=== PATIENT | male | born 2005 | race Caucasian/White ===

== ENCOUNTER 2023-07-15 09:48 | Emergency (ER) | payer OTHER, SELFPAY ==
--- NOTE | 2023-07-15 09:51 | ED.URI ---
HPI - URI/Sore Throat General Chief Complaint: Headache Stated Complaint: Hot flashes/bains Time Seen by Provider: 07/15/23 09:51 Source: patient and RN notes reviewed Mode of arrival: ambulatory Limitations: no limitations History of Present Illness HPI Narrative: Patient is a 17-year-old male who presents to the [facility] with complaints of headache since . He states that the headaches have been ongoing and have been affecting his sleep. He also reports sweats and feeling warm. However he denies known fevers. Denies chills. Denies cough, congestion, sore throat. Unsure of any known sick contacts. Patient is alert and oriented x4 with no obvious neurological deficits. He denies dizziness, numbness, weakness, difficulty walking, difficulty talking. Related Data Allergies Allergy/AdvReac Type Severity Reaction Status Date / Time latex Allergy Hives Verified 07/15/23 10:04 Review of Systems Review of Systems: CONSTITUTIONAL: Denies fever, chills, but reports sweats. EYES: Denies visual changes, redness, or discharge. ENT: Denies otalgia and sore throat CARDIOVASCULAR: Denies chest pain, palpitations, or edema. RESPIRATORY: Denies cough or dyspnea. GASTROINTESTINAL: Denies abdominal pain, nausea, vomiting, or diarrhea. GENITOURINARY: Denies dysuria or hematuria. SKIN: Denies rash or itching. MUSCULOSKELETAL: Denies back pain, joint pain, or myalgia. NEUROLOGIC: Reports headache, but denies numbness and weakness. Pertinent positives per HPI. PMFSH Comments At the time of my signature, I reviewed and agree with the nursing past medical, surgical, social, and family history. There is no relevant family history pertinent to the patient complaint. Exam Narrative: GENERAL: This is a well-nourished, well-developed patient, in no apparent distress. HEAD: normocephalic, atraumatic. EYES: Sclera clear/white. Vision is grossly intact. EARS: External ears normal. Hearing grossly intact. NOSE: External nose normal with no obvious nasal discharge, nares without redness, no rhinorrhea. THROAT: Mucous membranes moist, posterior pharynx clear. NECK: Neck supple, non-tender without lymphadenopathy, masses or thyromegaly. CARDIOVASCULAR: Regular rate and rhythm without murmurs, gallops, or rubs. RESPIRATORY: Clear to auscultation. Breath sounds equal bilaterally. No wheezes, rales, or rhonchi. GASTROINTESTINAL: Abdomen soft, non-tender, nondistended. Bowel sounds are active. No hepato-splenomegaly, or palpable masses. No guarding. SKIN: warm, intact with no suspicious lesions or rash, good texture and turgor. NEURO: awake, alert, and oriented to person, place and time. There were no obvious focal neurologic abnormalities. Course Course Level of Care: Express Care Visit Vital Signs Vital signs: Vital Signs Temperature 97.4 F L 07/15/23 10:00 Pulse Rate 102 H 07/15/23 10:00 Respiratory Rate 16 07/15/23 10:00 Blood Pressure 117/84 07/15/23 10:00 Pulse Oximetry 99 07/15/23 10:00 Temperature 97.4 F L 07/15/23 10:00 Pulse Rate 102 H 07/15/23 10:00 Respiratory Rate 16 07/15/23 10:00 Blood Pressure 117/84 07/15/23 10:00 Pulse Oximetry 99 07/15/23 10:00 Reviewed MDM - URI/Sore Throat MDM Narrative Medical decision making narrative: Take medication as directed. Follow-up with primary care physician. If he develops any dizziness, numbness, weakness, difficulty walking, difficulty talking, or change in mental status, please go to the ED immediately. Differential Diagnosis Differential diagnosis: Likely sinusitis, viral infection, influenza and other (covid, headache) Lab Data Attestation: I reviewed the patient's lab results. Labs: Influenza A Screen Negative Reference Range: Negative Influenza B Screen Negative Reference Range: Negative Critical Car
[2023-07-15 10:00] VITALS: BP 117/84; PULSE 102; RESP 16; TEMP 36.3; O2SAT 99
== END 2023-07-15 10:38 | disposition home or self-care (01) ==
PROVIDERS: Emergency Provider Nurse Practitioner
DX: R51.9 Headache, unspecified (principal); Z20.822 Contact with and (suspected) exposure to COVID-19
CPT/HCPCS: 87426; 87804; 99213; G0463

== ENCOUNTER 2023-07-15 11:17 | Emergency (ER) | payer OTHER, SELFPAY ==
--- NOTE | ~2023-07-15 | CT_ITS ---
Non-contrast Head CT History: Headache Technique: Axial non-contrast imaging of the brain was performed. Dose reduction technique was used on this scan by utilizing automated exposure control and iterative reconstruction technique. The dose -length product (DLP) was 681.00 mGy-cm. Findings: There is no evidence of intracranial hemorrhage, mass lesion, or acute infarct. Brain par enchyma appears normal. The ventricles and subarachnoid spaces are normal in size. The calvarium ap pears normal. The visualized paranasal sinuses and mastoid air cells are clear. Impression: No significant abnormality seen. Reviewed, dictated and finalized at location . Impression: No significant abnormality seen.
[2023-07-15 11:21] VITALS: BP 128/80; PULSE 94; RESP 18; TEMP 36.3; O2SAT 100
--- NOTE | 2023-07-15 11:26 | PC.NURSE ---
Addendum entered by Lara Weiss RN 07/15/23 11:34: Pt states they were up in [place] a few weeks ago before the headache started. he states that he got a bite of some sort and the bite bump is still present on his leg and he is unsure if it was a tick bite patient denies itching but states that it felt warm and throbbing. the patient denies headaches like this before the bite occured. the patient states that some days his headache is present everywhere, some days it's more of the forehead. and it moves throughout the head depending on the day. Patient reports that he goes to college in [facility] and lyme is prevelent in the area, he also lives in the dorms but states that he is up to date on his meningitis vaccinations. Original Note: Pt states they were up in [place] a few weeks ago before the headache started. he states that he got a bite of some sort and the bite bump is still present on his leg and he is unsure if it was a tick bite patient denies itching but states that it felt warm and throbbing. the patient denies headaches like this before the bite occured. the patient states that some days his headache is present everywhere, some days it's more of the forehead. and it moves throughout the head depending on the day.
--- NOTE | 2023-07-15 11:43 | ED.HA ---
HPI - Headache General Chief Complaint: Headache Stated Complaint: Headache, restless Time Seen by Provider: 07/15/23 11:21 History of Present Illness HPI Narrative: 17-year-old male no medical problems presents to the emergency room evaluation gradual onset the headache has been present for 6 days. Patient denies any photophobia. Denies nausea or vomiting. Denies changes in his vision or hearing. Patient states he has attempted Tylenol ibuprofen multiple occasions with no relief of symptoms. Denies injury or trauma. States since the onset of his headache he has had difficulty sleeping. Denies dizziness or lightheadedness. Denies history of similar symptoms. Denies any inciting event. Related Data Allergies Allergy/AdvReac Type Severity Reaction Status Date / Time latex Allergy Hives Verified 07/15/23 10:04 Review of Systems Review of Systems: ROS unremarkable except for stated in HPI Exam Narrative: GENERAL: Well-appearing, well-nourished, no physical limitations, and in no acute distress. HEAD: Normocephalic, atraumatic. EYES: Conjunctivae normal, PERRLA and EOMI. ENT: External nose normal, Nares clear, no rhinorrhea or epistaxis. Mucous membranes moist. External ears normal, bilateral TMs normal bilaterally NECK: Supple. No meningeal signs. CHEST: Clear to auscultation. No respiratory distress. No wheezes rales or rhonchi. HEART: Regular rate and rhythm. No murmur heard. Normal peripheral pulses. BACK:No cervical spine tenderness, FROM EXTREMITIES: Normal range of motion. No edema. No clubbing or cyanosis SKIN: Warm, dry, no rash. No noted wounds NEURO: No focal deficits. Alert and oriented x3. MAEW. CN's II-XI intact bilaterally, normal gait PSYCH: Cooperative. Normal mood and affect. Course Vital Signs Vital signs: Vital Signs Temperature 36.3 C L 07/15/23 11:21 Pulse Rate 94 07/15/23 11:21 Respiratory Rate 18 07/15/23 11:21 Blood Pressure 128/80 07/15/23 11:21 Pulse Oximetry 100 07/15/23 11:21 Oxygen Delivery Room Air 07/15/23 11:21 Temperature 36.3 C L 07/15/23 11:21 Pulse Rate 94 07/15/23 11:21 Respiratory Rate 18 07/15/23 11:21 Blood Pressure 128/80 07/15/23 11:21 Pulse Oximetry 100 07/15/23 11:21 Oxygen Delivery Room Air 07/15/23 11:21 MDM - Headache Lab Data 07/15/23 12:16 07/15/23 12:16 Labs: Lab Results 07/15/23 Range/Units 12:16 WBC 6.3 (4.5-10.0) K/mm3 RBC 5.97 (4.6-6.20) M/mm3 Hgb 16.3 (14.0-18.0) g/dL Hct 49.0 (42.0-52.0) % MCV 82.1 (80-100) fl MCH 27.3 (26-34) pg MCHC 33.3 (32-36) g/dl RDW 14.0 (11.5-14.5) % Plt Count 162 (150-375) k/mm3 MPV 10.4 (7.4-10.4) fl Immature Gran % (Auto) 0.2 (0-0.5) % Neut % (Auto) 39.7 L (45.5-73.1) % Lymph % (Auto) 47.3 H (18.3-44.2) % [place] % (Auto) 10.2 H (2.6-8.5) % Eos % (Auto) 1.8 (0-4.4) % Baso % (Auto) 0.8 (0.2-1.2) % Lymph # (Auto) 2.97 (0.9-3.2) K/mm3 [place] # (Auto) 0.6 (0.1-0.6) K/mm3 Eos # (Auto) 0.1 (0-0.3) K/mm3 Baso # (Auto) 0.1 (0.0-0.1) K/mm3 Abs Immat Gran (auto) 0.01 (0.00-0.031) K/mm3 Absolute Neuts (auto) 2.5 (1.3-6.7) K/mm3 Absolute Nucleated RBC 0.000 (0.0-0.012) K/mm3 Nucleated RBC % 0.0 (0.0-0.2) % Sodium 141 (134-143) mmol/L Potassium 4.4 (3.4-5.0) mmol/L Chloride 104 (98-107) mmol/L Carbon Dioxide 29 (22-30) mmol/L Anion Gap 8 (4-12) mmol/L BUN 15 (8-21) mg/dL Creatinine 0.90 (0.7-1.3) mg/dL Estim Creat Clear Calc 594 ml/min Estimated GFR > 60 (59 - ) Glucose 94 (65-110) mg/dL Calcium 9.3 (8.9-10.7) mg/dL Total Bilirubin 1.0 (0.2-1.3) mg/dL AST 34 (17-59) U/L ALT 40 (6-50) U/L Alkaline Phosphatase 50 L (58-237) U/L Total Protein 8.0 (6.3-8.6) g/dL Albumin 4.8 (3.7-5.6) g/dL Imaging Data Radiologist's impression: Impressions Head CT 07/15/23 11:59 Impression: No significant abnormality
[2023-07-15] MEDS: SODIUM CHLORIDE 0.9% IV 1,000 ML 999 ML IV CONT (12:11)
[2023-07-15] MEDS: METOCLOPRAMIDE HCL INJ 10 MG/2 ML VIAL IV PUSH (12:11)
[2023-07-15] MEDS: KETOROLAC 30 MG/ML VIAL (*BKC) IV PUSH (12:12)
[2023-07-15] MEDS: diphenhydrAMINE HCl INJ 50 MG/ML VIAL 25 MG IV PUSH (12:13)
[2023-07-15] MEDS: dexAMETHasone SOD PHOS INJ 10 MG/ML 1 ML VIAL IV PUSH (12:14)
[2023-07-15 12:23] LABS: Basophils Absolute Auto 0.1 K/mm3 (0.0-0.1); Basophils Percent Auto 0.8 % (0.2-1.2); Eosinophils Absolute Auto 0.1 K/mm3 (0-0.3); Eosinophils Percent Auto 1.8 % (0-4.4); Hemoglobin 16.3 g/dL (14.0-18.0); Immature Granulocyte Absolute 0.01 K/mm3 (0.00-0.031); Immature Granulocyte Percent A 0.2 % (0-0.5); Lymphocytes Absolute Auto 2.97 K/mm3 (0.9-3.2); Lymphocytes Percent Auto 47.3 % (18.3-44.2); Mean Corpuscular HGB Conc 33.3 g/dl (32-36); Mean Corpuscular Hemoglobin 27.3 pg (26-34); Mean Corpuscular Volume 82.1 fl (80-100); Mean Platelet Volume 10.4 fl (7.4-10.4); Monocytes Absolute Auto 0.6 K/mm3 (0.1-0.6); Monocytes Percent Auto 10.2 % (2.6-8.5); Neutrophils Absolute Auto 2.5 K/mm3 (1.3-6.7); Neutrophils Percent Auto 39.7 % (45.5-73.1); Platelet Count Result 162 k/mm3 (150-375); Red Blood Count 5.97 M/mm3 (4.6-6.20); White Blood Count 6.3 K/mm3 (4.5-10.0)
--- NOTE | 2023-07-15 12:23 | PC.NURSE ---
Line placed and labs drawn, patient stated that his vision was feeling black and patient was diaphoretic, pale and clammy. cool rag placed on patients forehead, rails raised on the bed, sat with patient until he was feeling better. patient stated he felt woozy after seeing the blood getting drawn and that he hadn't drank or eaten anything today.
[2023-07-15 12:35] LABS: Alanine Aminotransferase 40 U/L (6-50); Albumin Level 4.8 g/dL (3.7-5.6); Alkaline Phosphatase 50 U/L (58-237); Anion Gap 8 mmol/L (4-12); Aspartate Amino Transferase 34 U/L (17-59); Blood Urea Nitrogen 15 mg/dL (8-21); Calcium 9.3 mg/dL (8.9-10.7); Carbon Dioxide 29 mmol/L (22-30); Chloride 104 mmol/L (98-107); Estimated CRCL calculation 594 ml/min; Estimated Glomerular Filt Rate > 60; Glucose 94 mg/dL (65-110); Potassium 4.4 mmol/L (3.4-5.0); Sodium 141 mmol/L (134-143)
[2023-07-15 13:34] VITALS: BP 132/65; PULSE 86; RESP 18; TEMP 36.8; O2SAT 100
== END 2023-07-15 13:36 | disposition home or self-care (01) ==
PROVIDERS: Emergency Provider Nurse Practitioner Family; PCP Internal Medicine
DX: R51.9 Headache, unspecified (principal)
CPT/HCPCS: 36415; 70450; 80053; 85025; 87426; 87804; 96361; 96374; 96375; 99284; J1100; J1200; J1885; J2765; J7030

== ENCOUNTER 2024-03-03 11:43 | Emergency (ER) | payer OTHER, SELFPAY ==
[2024-03-03 12:00] VITALS: BP 114/78; PULSE 115; RESP 20; TEMP 37.3; O2SAT 100
--- NOTE | 2024-03-03 12:21 | ED_ITS ---
HPI - General Adult General Chief complaint: Headache Stated complaint: Hemorrhoid/Headache Time Seen by Provider: 03/03/24 11:59 Source: patient and RN notes reviewed Mode of arrival: ambulatory Limitations: no limitations History of Present Illness HPI narrative: Patient presents today complaining of a severe headache x2 days with photophobia, nausea, chills, fever up to 101. Headache is worse with sitting up and standing. He took a dose of oral Toradol this morning at 5:00 a.m. without relief and states he took a dose of sumatriptan yesterday without relief of symptoms. He currently rates his pain 10/19. States he had a similar headache in July 2023 and was seen in the ER. After workup he was discharged home sumatriptan and Toradol which did help him at time. Patient is also today complaining of a one-week history of presumed hemorrhoid. Patient is having bright red blood and mucus per rectum with bowel movements as well as pain with bowel movements. He denies abdominal pain, diarrhea, consti pation. He has tried Metamucil fiber without relief. Related Data Home Medications ?Medication ?Instructions ?Recorded ?Confirmed ?Last Taken ?Type No Home Medications 08/11/23 03/03/24 Unknown History Allergies Allergy/AdvReac Type Severity Reaction Status Date / Time latex Allergy Hives Verified 03/03/24 12:00 Review of Systems Review of Systems: CONSTITUTIONAL: Denies body aches, or sweats.+ fever, chills EYES: Denies visual changes, redness, or discharge.+ photophobia ENT: Denies rhinorrhea, congestion, sore throat, or otalgia. CARDIOVASCULAR: Denies chest pain, palpitations, or edema. RESPIRATORY: Denies cough or dyspnea. GASTROINTESTINAL: Denies abdominal pain, vomiting, or diarrhea.+ nausea, bright red blood and mucus per rectum GENITOURINARY: Denies dysuria or hematuria. SKIN: Denies rash, itching, or wounds. MUSCULOSKELETAL: Denies back pain, joint pain, or myalgia. NEUROLOGIC: Denies numbness, tingling, or weakness.+ headache PSYCH: Denies depression or anxiety. [facility] Family History Family History Father Hypertension Depression Anxiety Grandparent Heart problem Social History Social History Social History: Caffeine: None Smoking status: Never smoker Alcohol intake: never Substance use: never Substance use type: does not use Do You Feel Safe in your Home?: Yes Lack of Transportation: No Lack of Food: Never True Current Housing: I Have Housing Concerned About Future Housing: No Difficulty Paying Gas/Electric Bills: No Difficulty Paying for Meds: No Currently Unemployed: No Education: High School Diploma/GED Difficulty w/ Childcare or Family Care: No Living arrangements: with family Occupation/Education: occupation Additional occupation/education comments: [employer] Gender identity (if verbalized by the patient): Male Sexual Orientation (if Verbalized by the Patient): Straight or Heterosexual Agree to blood products: Yes Comments At time of signature, I have reviewed and agree with nursing past medical, surgical, social and family history unless otherwise noted. Please see nursing chart for further information. There is no relevant family history pertinent to the presenting complaint Exam Narrative: GENERAL: Well-appearing, well-nourished, and in no acute distress. HEAD: Normocephalic, atraumatic. EYES: EOMI. PERRL. No redness or drainage. Conjunctivae normal. Patient wearing sunglasses. ENT: Mucous membranes pink and moist. Nares clear. No rhinorrhea. TMs normal bilaterally. Throat normal. Uvula midline. NECK: Normal AROM. Supple. No lymphadenopathy. CHEST: No respiratory distress. Clear to auscultation. HEART: Regular rhythm. Tachycardia. No murmur appreciated. Normal peripheral pulses. ABDOMEN: Soft, nontender, nondistended, normal active bowel sounds. Rectal exam chaperoned by Marisol Blum. No external hemorrhoid or fissure noted. No obvious internal hemorrhoid noted, but unable to fully palpate as patient would not relax rectum for digital exam. +bright red blood noted on gloved finger. EXTREMITIES: Normal range of motion. No edema. SKIN: Warm, dry, no rash. Capillary refill normal. Normal skin turgor. NEURO: No focal deficits. Alert and oriented x3. Gait steady. PSYCH: Normal affect. No signs of depression or anxiety. Course Course Level of Care: Express Care Visit Vital Signs Vital signs: Vital Signs Temperature 99.1 F 03/03/24 12:00 Pulse Rate 115 H 03/03/24 12:00 Respiratory Rate 20 03/03/24 12:00 Blood Pressure 114/78 03/03/24 12:00 Pulse Oximetry 100 03/03/24 12:00 Temperature 99.1 F 03/03/24 12:00 Pulse Rate 115 H 03/03/24 12:00 Respiratory Rate 20 03/03/24 12:00 Blood Pressure 114/78 03/03/24 12:00 Pulse Oximetry 100 03/03/24 12:00 Reviewed Medical Decision Making MDM Narrative Medical decision making narrative: Influenza and COVID negative. Based on patient's symptoms, history of fever, and exam, as well as negative testing, recommend ER transfer for more thorough evaluation. Patient declines at this time. States he will go later today, after his hair salon appointment. Differential Diagnosis Differential Diagnosis: Thrombosed hemorrhoid, internal hemorrhoid, anal fissure, inflammatory bowel disease, colitis, influenza, COVID, viral syndrome Vital Signs Vital Signs: Vital Signs Temperature 99.1 F 03/03/24 12:00 Pulse Rate 115 H 03/03/24 12:00 Respiratory Rate 20 03/03/24 12:00 Blood Pressure 114/78 03/03/24 12:00 Pulse Oximetry 100 03/03/24 12:00 Temperature 99.1 F 03/03/24 12:00 Pulse Rate 115 H 03/03/24 12:00 Respiratory Rate 20 03/03/24 12:00 Blood Pressure 114/78 03/03/24 12:00 Pulse Oximetry 100 03/03/24 12:00 Lab Data Lab results reviewed: Yes I reviewed the patient's lab results. Labs: Lab Results 03/03/24 Range/Units 12:33 POC Influenza A Ag Negative (Negative) POC Influenza B Ag Negative (Negative) POC SARS CoV-2 Ag Negative (Negative) Critical Care Time Critical Care Time Critical Care Time: No Discharge Plan Discharge Clinical Impression: Severe headache, BRBPR (bright red blood per rectum) Patient Disposition: Home, Self-Care Condition: Stable Instructions: Rectal Bleeding (ED), Acute Headache (ED) Additional Instructions: You have declined ER transfer at this time. Please proceed there when you are ready for further evaluation. Patient Language: [place] Prescriptions: No Action No Home Medications Follow-up/Referrals: Foster Delarosa, DO [Primary Care Provider] - Time of Disposition: 12:34
[2024-03-03 12:35] LABS: EDCOVIDSCREEN Negative (Negative); EDINFLUASCREEN Negative (Negative); EDINFLUBSCREEN Negative (Negative)
== END 2024-03-03 12:38 | disposition home or self-care (01) ==
PROVIDERS: Emergency Provider Nurse Practitioner; PCP Internal Medicine
DX: R51.9 Headache, unspecified (principal); K62.5 Hemorrhage of anus and rectum; Z20.822 Contact with and (suspected) exposure to COVID-19
CPT/HCPCS: 87426; 87804; 99213; G0463

== ENCOUNTER 2024-03-03 14:43 | Emergency (ER) | payer OTHER, SELFPAY ==
[2024-03-03] VITALS (14 sets, daily range): BP systolic 100–116; BP diastolic 60–81; PULSE 99–115; RESP 14–18; TEMP 36.7; O2SAT 97–100
--- NOTE | ~2024-03-03 | CT_ITS ---
EXAMINATION: CT abdomen pelvis w con DATE: 03/03/2024 16:17 INDICATION: Lower abdominal pain and rectal bleeding. TECHNIQUE: Computed tomography (CT) of the abdomen and pelvis was performed with 100 mL Omnipaque-350 intravenous contrast. Automated exposure control and iterative reconstruction technique were employe d. The dose-length product was 317.14 mGy-cm. COMPARISON: None FINDINGS: Lung bases are clear. Heart size is normal. No pericardial or pleural effusion. Liver, gallbladder, s pleen, pancreas, bilateral adrenal glands and kidneys are normal. Bowels including the appendix are n ormal. Bladder is normal. No free intraperitoneal gas or fluid. No pathologically enlarged abdominal or pelvic lymphadenopathy. Bones are unremarkable. IMPRESSION: 1. No acute intra-abdominal/pelvic process. Reviewed, dictated and finalized at location A. [facility]
--- NOTE | 2024-03-03 15:30 | ED.GENADULT ---
HPI - General Adult General Chief complaint: Unspecified <Noemí Jefferson APRN - Last Filed: 03/03/24 17:50> Stated complaint: h/a, rectal bleeding <Noemí Jefferson APRN - Last Filed: 03/03/24 17:50> Time Seen by Provider: 03/03/24 15:20 <Noemí Jefferson APRN - Last Filed: 03/03/24 17:50> Focused HPI: Patient a 18-year-old male who presents to the ER with complaints of rectal bleeding that has been going for 8 days. Earlier today he went to urgent care and they checked for hemorrhoid but were unable to see once a day advised to come to the ER for evaluation. He endorses intermittent groin pain. Patient reports had a bowel movement earlier today that blood and mucus in it. He also endorses a headache. Patient endorses a history of migraine headaches with his home medications have not helped treat it. He reports this headache has been going on for about 3-4 days. Patient had imaging on his head the past summer and was prescribed sumatriptan and Toradol. He took both those medications this morning but has not had any relief of his migraine. Patient denies any chest pain, shortness of breath, fever, gastric reflux, back pain. GENERAL: Well-appearing, well-nourished, and in no acute distress. HEAD: Normocephalic, atraumatic. CHEST: Clear to auscultation. ?No respiratory distress. HEART: Tachycardia and regular rhythm.? NEURO: ?Alert and oriented x3. Patient screened in triage and initial orders placed.? ?Additional care and disposition to be based upon?diagnostic testing and treatment. <Noemí Jefferson APRN - Last Filed: 03/03/24 17:50> Focused HPI: Patient a 18-year-old male who presents to the ER with complaints of rectal bleeding that has been going for 8 days. Earlier today he went to urgent care and they checked for hemorrhoid but were unable to see once a day advised to come to the ER for evaluation. He endorses intermittent groin pain. Patient reports had a bowel movement earlier today that blood and mucus in it. He also endorses a headache. Patient endorses a history of migraine headaches with his home medications have not helped treat it. He reports this headache has been going on for about 3-4 days. Patient had imaging on his head the past summer and was prescribed sumatriptan and Toradol. He took both those medications this morning but has not had any relief of his migraine. Patient denies any chest pain, shortness of breath, fever, gastric reflux, back pain. GENERAL: Well-appearing, well-nourished, and in no acute distress. HEAD: Normocephalic, atraumatic. CHEST: Clear to auscultation. ?No respiratory distress. HEART: Tachycardia and regular rhythm.? NEURO: ?Alert and oriented x3. Patient screened in triage and initial orders placed.? ?Additional care and disposition to be based upon?diagnostic testing and treatment. Agrees chart assessment. Patient states that he does get migraines fairly frequently and he has some left over migraine medications, sumatriptan which he felt as though it did not help his symptoms this time. He states that he has had his headaches worked up already and has had a CT scan of his head this past summer which was normal. <Gladis Adhikari MD - Last Filed: 03/04/24 06:12> Related Data Home medications: Home Medications ?Medication ?Instructions ?Recorded ?Confirmed ?Last Taken ?Type No Home Medications 08/11/23 03/03/24 Unknown History <Noemí Jefferson APRN - Last Filed: 03/03/24 17:50> Allergies/adverse reactions: Allergies Allergy/AdvReac Type Severity Reaction Status Date / Time latex Allergy Hives Verified 03/03/24 19:39 <Noemí Jefferson APRN - Last Filed: 03/03/24 17:50> Review of Systems Review of Systems: All systems are reviewed and are negative unless stated otherwise in the HPI. <Gladis Adhikari MD - Last Filed: 03/04/24 06:12> PMFSH Family History Family History: Family History Father Hypertension Depression Anxiety Grandparent Heart problem <Noemí Jefferson APRN - Last Filed: 03/03/24 17:50> Social History Social History: Social History Social History: Caffeine: None Smoking status: Never smoker Alcohol intake: never Substance use: never Substance use type: does not use Do You Feel Safe in your Home?: Yes Lack of Transportation: No Lack of Food: Never True Current Housing: I Have Housing Concerned About Future Housing: No Difficulty Paying Gas/Electric Bills: No Difficulty Paying for Meds: No Currently Unemployed: No Education: High School Diploma/GED Difficulty w/ Childcare or Family Care: No Living arrangements: with family Occupation/Education: occupation Additional occupation/education comments: [employer] Gender identity (if verbalized by the patient): Male Sexual Orientation (if Verbalized by the Patient): Straight or Heterosexual Agree to blood products: Yes <oNemí Jefferson APRN - Last Filed: 03/03/24 17:50> Exam Narrative: General: Alert, awake, afebrile, in no acute distress. HEENT: PERRL, no rhinorrhea, no post nasal drip, oropharynx clear, photophobia. Neck: Trachea midline, no JVD, no lymphadenopathy. Cardiovascular: Regular rate and rhythm, no murmurs, rubs or gallops, no peripheral edema. Respiratory: Clear to auscultation bilaterally, no tachypnea, no wheezing, no rhonchi, no rubs, no respiratory distress. Abdomen: Soft, nontender, nondistended, no rebound, no guarding, no peritoneal signs. Musculoskeletal: No joint swelling or deformity, normal muscle tone. Skin: No rashes or petechia, no signs of infection. Psychiatric: Alert and oriented, normal behavior and judgment for situation. Neurological: Alert and oriented to person, place, and time. Follows all commands. No focal deficits, speech is clear and fluent. <Gladis Adhikari MD - Last Filed: 03/04/24 06:12> Course Vital Signs Vital signs: Vital Signs Temperature 98.1 F 03/03/24 15:16 Pulse Rate 115 H 03/03/24 15:16 Respiratory Rate 18 03/03/24 15:16 Blood Pressure 108/71 03/03/24 15:16 Pulse Oximetry 99 03/03/24 15:16 Oxygen Delivery Room Air 03/03/24 15:16 Temperature 98.0 F 03/03/24 19:39 Pulse Rate 99 03/03/24 23:01 Respiratory Rate 18 03/03/24 23:01 Blood Pressure 107/62 03/03/24 23:01 Pulse Oximetry 100 03/03/24 23:01 Oxygen Delivery Room Air 03/03/24 19:39 <Noemí Jefferson APRN - Last Filed: 03/03/24 17:50> Vital Signs Temperature 98.1 F 03/03/24 15:16 Pulse Rate 115 H 03/03/24 15:16 Respiratory Rate 18 03/03/24 15:16 Blood Pressure 108/71 03/03/24 15:16 Pulse Oximetry 99 03/03/24 15:16 Oxygen Delivery Room Air 03/03/24 15:16 Temperature 98.0 F 03/03/24 19:39 Pulse Rate 99 03/03/24 23:01 Respiratory Rate 18 03/03/24 23:01 Blood Pressure 107/62 03/03/24 23:01 Pulse Oximetry 100 03/03/24 23:01 Oxygen Delivery Room Air 03/03/24 19:39 <Gladis Adhikari MD - Last Filed: 03/04/24 06:12> Medical Decision Making MDM Narrative Medical decision making narrative: The patient was evaluated by myself in the emergency department. History is obtained from patient who is an independent historian and physical exam was performed. External medical records were reviewed at this time. IV was established and pertinent tests were ordered. Patient was administered 2 L IV fluid bolus with normal saline, 10 mg of IV Reglan, 25 mg of IV Benadryl and 50 mg of IV Toradol for migraine. On repeat assessment the patient, patient states that his migraine dropped from a 9 to a 5. At this time patient was administered he an or [place] 5-325 mg. Laboratory results obtained revealing no acute process. Stable hemoglobin of 16.8. Imaging studies obtained included CT abdomen and pelvis with IV contrast which was independently interpreted by me revealing no acute process, which is pending final radiology interpretation. Differential diagnosis considerations include migraine headache, dehydration, acute viral syndrome, internal versus external hemorrhoids. Comorbidities impacting this visit include history of migraines. I have evaluated and discussed social determinants of health with the patient that could potentially impact subsequent diagnosis and treatment plans. On repeat assessment of the patient, reevaluation revealed that the patient is doing well and is in no acute distress. Patient symptoms have improved since he arrived to our emergency department. Repeat vital signs were all reviewed and noted to be stable. Differential diagnosis and treatment plan were discussed with the patient at bedside. Patient agrees with discussion and after shared medical decision making agrees with discharge. All questions were answered to the patient's satisfaction. Patient will follow up with GI in 3-5 days. Patient was provided with strict return precautions and instructed to return to the emergency department if any new or worsening symptoms develop. The patient was discharged in stable condition. <Gladis Adhikari MD - Last Filed: 03/04/24 06:12> Vital Signs Vital Signs: Vital Signs Temperature 98.1 F 03/03/24 15:16 Pulse Rate 115 H 03/03/24 15:16 Respiratory Rate 18 03/03/24 15:16 Blood Pressure 108/71 03/03/24 15:16 Pulse Oximetry 99 03/03/24 15:16 Oxygen Delivery Room Air 03/03/24 15:16 Temperature 98.0 F 03/03/24 19:39 Pulse Rate 99 03/03/24 23:01 Respiratory Rate 18 03/03/24 23:01 Blood Pressure 107/62 03/03/24 23:01 Pulse Oximetry 100 03/03/24 23:01 Oxygen Delivery Room Air 03/03/24 19:39 <Noemí Jefferson APRN - Last Filed: 03/03/24 17:50> Vital Signs Temperature 98.1 F 03/03/24 15:16 Pulse Rate 115 H 03/03/24 15:16 Respiratory Rate 18 03/03/24 15:16 Blood Pressure 108/71 03/03/24 15:16 Pulse Oximetry 99 03/03/24 15:16 Oxygen Delivery Room Air 03/03/24 15:16 Temperature 98.0 F 03/03/24 19:39 Pulse Rate 99 03/03/24 23:01 Respiratory Rate 18 03/03/24 23:01 Blood Pressure 107/62 03/03/24 23:01 Pulse Oximetry 100 03/03/24 23:01 Oxygen Delivery Room Air 03/03/24 19:39 <Gladis Adhikari MD - Last Filed: 03/04/24 06:12> Lab Data Result diagrams: 03/03/24 15:33 03/03/24 15:33 <Noemí HeardImelda Jefferson, WAFER MACHINE OPERATOR - Last Filed: 03/03/24 17:50> Labs: Lab Results 03/03/24 Range/Units 15:33 WBC 9.4 (4.5-10.0) K/mm3 RBC 6.18 (4.6-6.20) M/mm3 Hgb 16.8 (14.0-18.0) g/dL Hct 50.4 (42.0-52.0) % MCV 81.6 (80-100) fl MCH 27.2 (26-34) pg MCHC 33.3 (32-36) g/dl RDW 13.8 (11.5-14.5) % Plt Count 251 D (150-375) k/mm3 MPV 9.9 (7.4-10.4) fl Immature Gran % (Auto) 0.2 (0-0.5) % Neut % (Auto) 58.6 (45.5-73.1) % Lymph % (Auto) 33.2 (18.3-44.2) % [place] % (Auto) 7.5 (2.6-8.5) % Eos % (Auto) 0.2 (0-4.4) % Baso % (Auto) 0.3 (0.2-1.2) % Lymph # (Auto) 3.12 (0.9-3.2) K/mm3 [place] # (Auto) 0.7 H (0.1-0.6) K/mm3 Eos # (Auto) 0.0 (0-0.3) K/mm3 Baso # (Auto) 0.0 (0.0-0.1) K/mm3 Abs Immat Gran (auto) 0.02 (0.00-0.031) K/mm3 Absolute Neuts (auto) 5.5 (1.3-6.7) K/mm3 Absolute Nucleated RBC 0.000 (0.0-0.012) K/mm3 Nucleated RBC % 0.0 (0.0-0.2) % PT 15.2 H (11.1-14.7) Seconds INR 1.2 APTT 29.7 (22.3-36.8) Seconds Sodium 138 (137-145) mmol/L Potassium 4.1 (3.4-5.0) mmol/L Chloride 96 L (98-107) mmol/L Carbon Dioxide 30 (22-30) mmol/L Anion Gap 12 (4-12) mmol/L BUN 13 (9-20) mg/dL Creatinine 0.96 (0.7-1.3) mg/dL Estim Creat Clear Calc 118 ml/min Estimated GFR > 60 (59 - ) Glucose 98 (65-110) mg/dL Calcium 9.8 (8.4-10.2) mg/dL Total Bilirubin 1.3 (0.2-1.3) mg/dL AST 24 (17-59) U/L ALT 16 (6-50) U/L Alkaline Phosphatase 59 (38-126) U/L Total Protein 9.0 H (6.3-8.2) g/dL Albumin 5.0 (3.5-5.1) g/dL Lipase 52 (23-300) U/L <Noemí Jefferson, WAFER MACHINE OPERATOR - Last Filed: 03/03/24 17:50> Lab Results 03/03/24 Range/Units 15:33 WBC 9.4 (4.5-10.0) K/mm3 RBC 6.18 (4.6-6.20) M/mm3 Hgb 16.8 (14.0-18.0) g/dL Hct 50.4 (42.0-52.0) % MCV 81.6 (80-100) fl MCH 27.2 (26-34) pg MCHC 33.3 (32-36) g/dl RDW 13.8 (11.5-14.5) % Plt Count 251 D (150-375) k/mm3 MPV 9.9 (7.4-10.4) fl Immature Gran % (Auto) 0.2 (0-0.5) % Neut % (Auto) 58.6 (45.5-73.1) % Lymph % (Auto) 33.2 (18.3-44.2) % [place] % (Auto) 7.5 (2.6-8.5) % Eos % (Auto) 0.2 (0-4.4) % Baso % (Auto) 0.3 (0.2-1.2) % Lymph # (Auto) 3.12 (0.9-3.2) K/mm3 [place] # (Auto) 0.7 H (0.1-0.6) K/mm3 Eos # (Auto) 0.0 (0-0.3) K/mm3 Baso # (Auto) 0.0 (0.0-0.1) K/mm3 Abs Immat Gran (auto) 0.02 (0.00-0.031) K/mm3 Absolute Neuts (auto) 5.5 (1.3-6.7) K/mm3 Absolute Nucleated RBC 0.000 (0.0-0.012) K/mm3 Nucleated RBC % 0.0 (0.0-0.2) % PT 15.2 H (11.1-14.7) Seconds INR 1.2 APTT 29.7 (22.3-36.8) Seconds Sodium 138 (137-145) mmol/L Potassium 4.1 (3.4-5.0) mmol/L Chloride 96 L (98-107) mmol/L Carbon Dioxide 30 (22-30) mmol/L Anion Gap 12 (4-12) mmol/L BUN 13 (9-20) mg/dL Creatinine 0.96 (0.7-1.3) mg/dL Estim Creat Clear Calc 118 ml/min Estimated GFR > 60 (59 - ) Glucose 98 (65-110) mg/dL Calcium 9.8 (8.4-10.2) mg/dL Total Bilirubin 1.3 (0.2-1.3) mg/dL AST 24 (17-59) U/L ALT 16 (6-50) U/L Alkaline Phosphatase 59 (38-126) U/L Total Protein 9.0 H (6.3-8.2) g/dL Albumin 5.0 (3.5-5.1) g/dL Lipase 52 (23-300) U/L <Gladis Adhikari MD - Last Filed: 03/04/24 06:12> Discharge Plan Discharge Clinical Impression: Cephalalgia, Rectal bleed <Noemí Jefferson APRN - Last Filed: 03/03/24 17:50> Patient Disposition: Home, Self-Care <Noemí Jefferson APRN - Last Filed: 03/03/24 17:50> Condition: Improved <Noemí Jefferson APRN - Last Filed: 03/03/24 17:50> Instructions: Antibiotic Form, Rectal Bleeding (ED), Acute Headache (DC) <Noemí Jefferson APRN - Last Filed: 03/03/24 17:50> Additional Instructions: Please follow-up with the GI doctor you were provided with today, call tomorrow to set up a follow-up appointment. Return to the emergency department if any new or worsening symptoms develop. <Noemí Jefferson APRN - Last Filed: 03/03/24 17:50> Patient Language: Kosovan <Noemí Jefferson APRN - Last Filed: 03/03/24 17:50> Prescriptions: No Action No Home Medications <Noemí Jefferson APRN - Last Filed: 03/03/24 17:50> Follow-up/Referrals: Edgar Restrepo MD [Physician] - 3 Days Foster Delarosa DO [Primary Care Provider] - 1 Week <Noemí Jefferson APRN - Last Filed: 03/03/24 17:50> Time of Disposition: 21:05 <Noemí Jefferson APRN - Last Filed: 03/03/24 17:50> 21:05 <Gladis Adhikari MD - Last Filed: 03/04/24 06:12>
[2024-03-03 15:40] LABS: Basophils Percent Auto 0.3 % (0.2-1.2); Eosinophils Percent Auto 0.2 % (0-4.4); Hematocrit 50.4 % (42.0-52.0); Hemoglobin 16.8 g/dL (14.0-18.0); Immature Granulocyte Absolute 0.02 K/mm3 (0.00-0.031); Immature Granulocyte Percent A 0.2 % (0-0.5); Lymphocytes Absolute Auto 3.12 K/mm3 (0.9-3.2); Lymphocytes Percent Auto 33.2 % (18.3-44.2); Mean Corpuscular HGB Conc 33.3 g/dl (32-36); Mean Corpuscular Hemoglobin 27.2 pg (26-34); Mean Corpuscular Volume 81.6 fl (80-100); Mean Platelet Volume 9.9 fl (7.4-10.4); Monocytes Absolute Auto 0.7 K/mm3 (0.1-0.6); Monocytes Percent Auto 7.5 % (2.6-8.5); Neutrophils Absolute Auto 5.5 K/mm3 (1.3-6.7); Neutrophils Percent Auto 58.6 % (45.5-73.1); Platelet Count Result 251 k/mm3 (150-375); Red Blood Count 6.18 M/mm3 (4.6-6.20); Red Cell Distribution Width 13.8 % (11.5-14.5); White Blood Count 9.4 K/mm3 (4.5-10.0)
[2024-03-03 15:52] LABS: Alanine Aminotransferase 16 U/L (6-50); Alkaline Phosphatase 59 U/L (38-126); Anion Gap 12 mmol/L (4-12); Aspartate Amino Transferase 24 U/L (17-59); Bilirubin,Total 1.3 mg/dL (0.2-1.3); Blood Urea Nitrogen 13 mg/dL (9-20); Calcium 9.8 mg/dL (8.4-10.2); Carbon Dioxide 30 mmol/L (22-30); Chloride 96 mmol/L (98-107); Estimated CRCL calculation 118 ml/min; Estimated Glomerular Filt Rate > 60; Glucose 98 mg/dL (65-110); Lipase 52 U/L (23-300); Potassium 4.1 mmol/L (3.4-5.0); Sodium 138 mmol/L (137-145)
[2024-03-03 16:02] LABS: Partial Thromboplastin Time 29.7 Seconds (22.3-36.8)
[2024-03-03 16:15] LABS: INR 1.2; Prothrombin Time 15.2 Seconds (11.1-14.7)
[2024-03-03] MEDS: SODIUM CHLORIDE 0.9% IV 1,000 ML 999 ML IV CONT ×2 (19:43→21:23)
[2024-03-03] MEDS: diphenhydrAMINE HCl INJ 50 MG/ML VIAL 25 MG IV PUSH (19:50)
[2024-03-03] MEDS: KETOROLAC 15 MG/ML VIAL (*BKC) IV PUSH (19:51)
[2024-03-03] MEDS: METOCLOPRAMIDE HCL INJ 10 MG/2 ML VIAL IV PUSH (19:51)
[2024-03-03] MEDS: HYDROcodone/acetaminophen (*CRX) 5-325 MG TABLET 1 TAB PO (21:23)
--- OUTSIDE RECORDS SUMMARY | 2024-03-04 05:48 | XMS_ITS | Referral Summary ---
Author Organization [facility] Address [address] [place] [address] Care Team Providers Care Wire Stockkeeper Name Role Phone Arti Roy MD Primary Care Provider [phone] Source Comments [facility],non-owned Affiliates and Associated Physician Practices is amultiple site organization consisting of ambulatory clinics and hospital sitesin [place], [place], [place] and [place]. This disclosure is being madepursuant to the Care Everywhere program and may not contain all information available regarding this patient. Last updated 17.[facility] Immunizations Name Administration Dates Next Due INFLUENZA VACCINE, QUADR. (F LUZONE; FLULAVAL; FLUARIX; AFLURIA QUADRIVALENT; 6MO+), 0.5 ML (IIV4) 12/19/2016 Social History Tobacco Use Types Packs/Day Years Used Date Smoking Tobacco: Never Assessed Sex and Gender Information Value Date Recorded Sex Assigned at Not on file Gender Identity Not on file Sexual Orientation Not on file Plan of Treatment Not on file Care Teams Wire Stockkeeper Relationship Specialty Start Date End Date Arti Roy MD [address] [place] [address] [address] [place] [address] (work) PCP - General Family Medicine 12/19/16
--- OUTSIDE RECORDS SUMMARY | 2024-03-04 05:48 | XMS_ITS | Patient Health Summary ---
Author Organization [facility] Address [address] [facility] [place] [address] Care Team Providers Care Pharmacy Operations Manager Name Role Phone Arti Roy MD Primary Care Provider [phone] Note from [facility],non-owned Affiliates and Associated Physician Practices is amultiple site organization consisting of ambulatory clinics and hospital sitesin [place], [place], [place] and [place]. This disclosure is being madepursuant to the Care Everywhere program and may not contain all information available regarding this patient. Last updated 17.[facility] Immunizations * INFLUENZA VACCINE, QUADR. (FLUZONE; FLULAVAL; FLUARIX; AFLURIA QUADRIVALENT; 6MO+), 0.5 ML (IIV4)(Given 12/19/2016) Social History Tobacco Use Types Packs/Day Years Used Date Smoking Tobacco: Never Assessed Sex and Gender Information Value Date Recorded Sex Assigned at Not on file Gender Identity Not on file Sexual Orientation Not on file Care Teams Pharmacy Operations Manager Relationship Specialty Start Date End Date Arti Roy MD [address] [place] [address] PCP - General Family Medicine 12/19/16
--- OUTSIDE RECORDS SUMMARY | 2024-03-04 05:48 | XMS_ITS | Clinical Summary ---
Author Organization [facility] Address [address] [place] [address] Care Team Providers Care Meat Butcher Name Role Phone Arti Roy MD Primary Care Provider [phone] Source Comments [facility],non-owned Affiliates and Associated Physician Practices is amultiple site organization consisting of ambulatory clinics and hospital sitesin [place], [place] and [place]. This disclosure is being madepursuant to the Care Everywhere program and may not contain all information available regarding this patient. Last updated 17.[facility] Immunizations Name Administration Dates Next Due INFLUENZA VACCINE, QUADR. (F LUZONE; FLULAVAL; FLUARIX; AFLURIA QUADRIVALENT; 6MO+), 0.5 ML (IIV4) 12/19/2016 Social History Tobacco Use Types Packs/Day Years Used Date Smoking Tobacco: Never Assessed Sex and Gender Information Value Date Recorded Sex Assigned at Not on file Gender Identity Not on file Sexual Orientation Not on file Plan of Treatment Health Maintenance Due Date Last Done Comments HIV SCREENING 09/17/2018 HPV VACCINE (1 - Male 3-dose series) 09/17/2018 MENINGOCOCCAL (Group B) VACC INE (1 of 2 - Standard) 2019 HEPATITIS C SCREENING 09/13/2021 DTAP/TDAP/TD VACCINES (1 - Tdap) 09/17/2022 HEPATITIS B VACCINE (1 of 3 - 19+ 3-dose series) 09/17/2022 COVID-19 VACCINE (1 - 2023-2 5 season) 2023 INFLUENZA VACCINE (#1) 2023 12/19/2016 DEPRESSION SCREENING 02/10/2024 ZOSTER VACCINE (1 of 2) 09/17/2053 HIB VACCINE Aged Out No longer eligi ble based on patient's age to complete this topic MENINGOCOCCAL VACCINE Aged Out No remy deanna eligible based on patient's age to complete this topic PNEUMOCOCCAL VACCINE Aged Out No long er eligible based on patient's age to complete this topic Care Teams Meat Butcher Relationship Specialty Start Date End Date Arti Roy MD [facility] [place] [address] PCP - General Family Medicine 12/19/16
--- OUTSIDE RECORDS SUMMARY | 2024-03-04 05:49 | XMS_ITS | Data Portability ---
Author Organization [facility], Main Office Address [address] [place] [address] Assessment No assessment recorded. Plan of Treatment Reminders Order Date Submit Date Provider Last Modified By Organization Details Last Modified Time Details Appointments None recorded. Lab None recorded. Referral None recorded. Procedures None recorded. Surgeries None recorded. Imaging None recorded. Medication Orders Zithromax Z-Michael 250 mg tablet 2022 023 [facility] [address] [place], [address], 3 12:13:39 Zyrtec-D 5 mg-120 mg tablet,ext ended release 2022 023 [facility] [address] [place], [address], 3 12:13:44 Patient TargetsNo targets recorded. Patient InstructionsNo instructions recorded. Reason for Referral None Reported. Problems Name Problem SNOMED Code Status Onset Date Resolution Date Notes Provider Name and Address Organization Details Recorded Time Headache 79568296 Active 017 Not Available [facility] 3 18:02:23 Acute sinusitis 81326704 Active 023 Arti Roy MD [address] [place] [address], [place], [address] , [facility] 3 12:10:11 Problem Notes None recorded. Medical Equipment None Reported. Allergies Allergen ID Allergen Name Allergen Category Reaction Reaction Severity Criticality Documentation Date Start Date Code Code System Note Provider Name and Address Organization Details Recorded Time 67450 perfume environme nt Not available Not available Not available 04/09/2022 67218 UNK Not Available [facility] 3 18:03:54 91842 latex environme nt,medica tion Not available Not available Not available 04/09/2022 17745 91 RxNorm Not Available [facility] 3 18:03:54 55708 adhesive environme nt,medica tion Not available Not available Not available 04/09/2022 31669 UNK Not Available [facility] 3 18:03:54 Medications Name Sig Start Date Stop Date Status Note LastModified by Organization Details LastModified Time Zyrtec-D 5 mg-120 mg tablet,exte nded release Take 1 tablet every 12 hours by oral route. 2022 active Not Available Not Available Not Avai lable triamcinolo ne acetonide 0.5 % topical cream 03/06 completed Not Available Not Available Not Available Zithromax Z-Michael 250 mg tablet TAKE 2 TABLETS (500 MG) BY ORAL ROUTE ONCE DAILY FOR 1 DAY THEN 1 TABLET (250 MG) BY ORAL ROUTE ONCE DAILY FOR 4 DAYS 2022 active Not Available Not Available Not Avai lable doxycycline monohydrate 100 mg tablet 03/06 completed Not Available Not Available Not Available triamcinolo ne acetonide 0.1 % topical cream APPLY CREAM EXTERNALL Y TO AFFECTED AREA TWICE DAILY FOR 14 DAYS active Not Available Not Available No t Available benzonatate 100 mg capsule 03/06 completed Not Available Not Available Not Available tacrolimus 0.1 % topical ointment APPLY TO THE AFFECTED AREA(S) TWICE DAILY 03/06 completed Not Available Not Available Not Available cephalexin 250 mg/5 mL oral suspension Take 10 mL twice a day by oral route for 7 days. active Not Available Not Available No t Available amoxicillin 400 mg/5 mL oral suspension 01/13 completed Not Available Not Available Not Available clobetasol 0.05 % topical ointment APPLY TOPICALLY TO THE WORST AREAS TWICE DAILY NEEDED 03/06 completed Not Available Not Available Not Available fluticasone propionate 50 mcg/actuati on nasal spray,suspe nsion 01/13 completed Not Available Not Available Not Available neomycin 3.5 mg/g-polymy sreedhar B 10,000 unit/g-dexa meth 0.1 % eye oint APPLY A SMALL AMOUNT TO AFFECTED AREA 4 TIMES DAILY AND AT BEDTIME AFTER WARM COMPRESS. active Not Available Not Available No t Available Afluria Quad 7136-7606 (PF) 60 mcg (15 mcg x 4)/0.5 mL IM syringe 03/06 completed Not Available Not Available Not Available Vitals Date Recorded Body mass index (BMI) Body height Oxygen saturation Oxygen saturation in Arterial blood by Pulse oximetry Heart rate Body temperature Body weight Systolic blood pressure Diastolic blood pressure Provider Name and Address Organization Details Last Updated DateTime 2 19.9 kg/m2 190.5 cm 96 % 96 % 92 /min 98.8 [degF] 54639.1 9 g 112 mm[Hg] 74 mm[Hg] Not Available [facility] 3 18:02:07 Date Recorded Body height Body mass index (BMI) Percentile per age and sex Body mass index (BMI) Body weight Body temperature Heart rate Oxygen saturation Oxygen saturation in Arterial blood by Pulse oximetry Systolic blood pressure Diastolic blood pressure Provider Name and Address Organization Details Last Updated DateTime 3 190.5 cm 23 % 20.5 kg/m2 11609.1 5 g 97.8 [degF] 82 /min 98 % 98 % 102 mm[Hg] 70 mm[Hg] ELEUTERIO Villa [facility] 3 12:00:58 Social History None recorded. Functional Status None recorded. Mental Status None recorded. Family History Nothing Reported. Medical History No medical history recorded. Immunizations Vaccine Type Date Status Note Provider Nam e and Address Organization Details Recorded Time meningococcal MCV4P 1 completed Not Available [facility] 04/09/2022 18:03:52 Past Encounters Encounter ID Performer Location Encounter Start Date Encounter Closed Date Diagnosis/Indication Diagnosis SNOMED-CT Code Diagnosis ICD10 Code Diagnosis Note [id number] [facility] [place] [address] 08/21/2020 00:00:00 08/21/2020 20:58:53 [id number] [facility] [place] [address] 03/06/2021 00:00:00 03/07/2021 06:15:32 [id number] Arti Roy MD [facility]donado [address] [facility] [place] [address] 07/25/2022 11:47:56 07/25/2022 12:17:56 Acute sinusitis 39813361 J01.90 SxRx hot packs to face saline nasal spray Health Concerns Section Related Observation LastModified by Organization Detai ls LastModified Time None Recorded Concern Status LastModified by Organization Details LastModified Time None Recorded Advance Directives Directive None Recorded Payers Encounter Date Sequence Insurance Name Policy Number Policy Obando Covered Member ID Obando Member ID Guarantor Name 07/25/[address] [facility] [id number] Romario Nicholson [id number] Carole Nicholson Notes Date Note Type Note Provider Name and Address Organization Details Recorded Time 07/25/2022 text/html Here today c/o sickness in 06/01. Throat has been scratchy and phlegmy. Headaches are present. Has congestion. Sometimes throat hurts. Spitting out yellow phlegm. He is coughing but not much. Has not taken anything. His ears do not bother him. Clears throat a lot. No hx of strep throat. No fatigue. Arti Roy MD [facility] [address], [place], [address], [facility] [employer] 07/25/2022 16:29:31
== END 2024-03-03 23:03 | disposition home or self-care (01) ==
PROVIDERS: Registered Nurse; Emergency Provider Emergency Medicine; PCP Internal Medicine
DX: R51.9 Headache, unspecified (principal); K62.5 Hemorrhage of anus and rectum
CPT/HCPCS: 36415; 74177; 80053; 83690; 85025; 85610; 85730; 96361; 96374; 96375; 99284; A9270; J1100; J1200; J1885; J2765; J7030; Q9967

== ENCOUNTER 2024-09-01 06:34 | Outpatient (CLI) | payer OTHER, SELFPAY ==
--- NOTE | ~2024-09-01 | MR_ITS ---
EXAMINATION: MR brain/brain stem wo/w con DATE: 09/01/2024 07:52 INDICATION: Migraine TECHNIQUE: Magnetic resonance imaging (MRI) of the brain and brainstem was performed without and with 16 mL Multihance intravenous contrast. Sequences included sagittal and axial T1-weighted SE, axial d iffusion-weighted FS SE, axial 3D SWAN, axial T2-weighted FLAIR, and axial T2-weighted FSE. Postcontr ast axial, sagittal and coronal T1-weighted SE was obtained. Apparent diffusion coefficient (ADC) map s were created. COMPARISON: Head CT dated 07/15/2023 FINDINGS: There are no areas of restricted diffusion to suggest acute infarction. No intracranial hemorrhage or abnormal intracranial mass lesion. There are no intraparenchymal signal abnormalities seen on the ot her pulse sequences. The ventricles are symmetric and normal in size. There are no abnormal extra-axi al fluid collections. Flow voids are seen in the cerebral arteries on the T2-weighted sequences consi stent with their expected patency. . Mild mucosal thickening throughout the paranasal sinuses with so me mucous retention cyst along the floor of the maxillary sinuses and left sphenoid sinus. Visualized orbits and soft tissues are unremarkable. There are no areas of abnormal enhancement on the post con trast images. IMPRESSION: 1. Normal brain. No acute intracranial process. 2. Diffuse sinus disease Reviewed, dictated and finalized at location A.
--- OUTSIDE RECORDS SUMMARY | 2024-09-01 06:38 | XMS_ITS | Clinical Summary ---
Author Organization [facility] Address [address] [place] [address] Care Team Providers Care Equipment Worker Name Role Phone Arti Roy MD Primary Care Provider Source Comments [facility],non-owned Affiliates and Associated Physician Practices is amultiple site organization consisting of ambulatory clinics and hospital sitesin [place], [place], [place] and [place]. This disclosure is being madepursuant to the Care Everywhere program and may not contain all information available regarding this patient. Last updated 17.[facility] Immunizations Immunization Administration Dates Next Due INFLUENZA VACCINE, QUADR. 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 Gender Identity Not on file Sexual Orientation Not on file Plan of Treatment Health Maintenance Due Date Last Done Comments HIV SCREENING 09/17/2018 HPV VACCINE (1 - Male 3-dose series) 09/17/2018 MENINGOCOCCAL (Group B) VACC INE SHARED DECISION-MAKING (1 of 2 - Standard) 2019 HEPATITIS C SCREENING 09/13/2021 DTAP/TDAP/TD VACCINES (1 - Tdap) 09/17/2022 HEPATITIS B VACCINE (1 of 3 - 19+ 3-dose series) 09/17/2022 COVID-19 VACCINE (1 - 2023-2 5 season) 2023 DEPRESSION SCREENING 02/10/2024 INFLUENZA VACCINE (#1) 2024 12/19/2016 ZOSTER VACCINE (1 of 2) 09/17/2053 HIB VACCINE Aged Out No longer eligi ble based on patient's age to complete this topic MENINGOCOCCAL GROUPS A/C/Y/W VACCINE Aged Out No longer eligible b ased on patient's age to complete this topic PNEUMOCOCCAL VACCINE Aged Out No long er eligible based on patient's age to complete this topic Insurance [employer] Care Teams Equipment Worker Relationship Specialty Start Date End Date Arti Roy MD [facility] [place] [address] PCP - General Family Medicine 12/19/16
--- OUTSIDE RECORDS SUMMARY | 2024-09-01 06:38 | XMS_ITS | Patient Health Record ---
Author Organization [facility] [place] ([address]) Address [address] [place] [address] Care Team Providers Care Management Sme Name Role Phone Tammy Ott Primary Care Provider Aaron Lazar [phone] Reason For Referral No Information Medications Medication SIG (Take, Route, Frequency, Duration) Notes Start Date End Date Status VANICREAM - 1 matt applied topically BID; Duration: 14 day(s) Active PATANASE 665 mcg/inh 1 spray in each nostril BID; Duration: 30 day(s) Active Vanicream - 1 matt applied topically BID; Duration: 14 day(s) Active SINGULAIR 5 mg 1 tab(s) chewed QPM; Duration: 30 day(s) Active Patanase 665 MCG/INH 1 SPRAY IN EACH NOSTRIL BID; Duration: 30 DAY(S) *Please review and pick correct strength-formulatio n from Medispan options. If intended option is not shown, discontinue and re-order from Quick Search* Active NASONEX 50 MCG/INH 1 SPRAY EACH NOSTRIL ONCE A DAY; Duration: 30 *Please review for potential replacement for e-prescription and drug interaction check* Active NASAL WASHES N/A DIRECTED INTRANASALLY NEEDED; Duration: 30 *Please review for potential replacement for e-prescription and drug interaction check* Active PROVENTIL (ALBUTEROL) HFA 90 MCG/INH, CFC-FREE 2-4 PUFFS INHALED WITH SPACER QID, PRN AND PER ASTHMA ACTION PLAN; Duration: 30 DAYS *Please review for potential replacement for e-prescription and drug interaction check* Active Singulair 5 MG 1 tab(s) chewed QPM; Duration: 30 day(s) Active Plan Of Treatment No Information Insurance Providers Payer Name Payer Address Payer Phone Subscriber Number Group Number Insured Name Patient Relationship to Insured Coverage Start Date Coverage End Date [employer] [address] [place] [address] [id number] Romario Nicholson Child - Insured has Financial Responsibility Medical (General) History Medical History History ICD Code Cough, presumed RAD Chronic, vasomotor rhinitis
--- OUTSIDE RECORDS SUMMARY | 2024-09-01 06:38 | XMS_ITS | Clinical Summary ---
Author Organization [facility] Address [address] [place] [address] Care Team Providers Care Customs Compliance Manager Name Role Phone Arti Roy MD Primary Care Provider [phone]- [phone] Allergies No known active allergies Medications triamcinolone (KENALOG) 0.1 % cream APPLY CREAM EXTERNALLY TO AFFECTED AREA TWICE DAILY FOR 14 DAYS 0 08/16/19 25 Discontinu ed(Patient Reported) clobetasoL (TEMOVATE) 0.05 % ointment Twice daily to worst areas as needed 60 g 11 0 08/16/19 25 Discontinu ed(Patient Reported) tacrolimus (PROTOPIC) 0.1 % ointmentIndica tions:Intracta ble Eczema Apply topically 2 (two) times a day 100 g 1 0 08/16/19 25 Discontinu ed(Patient Reported) Active Problems Problem Noted Date Diagnosed Date Pharyngeal dysphagia 05/31/2021 Encounters Date Type Department Care Team Description 08/15/2024 10:15 AM CDT Office Visit [facility] at [address] [address] Tori Meyer PA Physical exam, pre-employment (Primary Dx) from Last 3 Months Family History Medical History Relation Name Comments Hypertension Father Relation Name Status Comments Father Social History Tobacco Use Types Packs/Day Years Used Date Smoking Tobacco: Never Tobacco Cessation:Counseling Given: Not Answered Sex and Gender Information Value Date Recorded Sex Assigned at Not on file 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 Gender Identity Not on file Sexual Orientation Not on file Obstetrics History Last Filed Vital Signs Vital Sign Reading Time Taken Comments Blood Pressure 122/72 08/15/2024 10:19 AM CDT Pulse 96 08/15/2024 10:19 AM CDT Temperature 37.1 C (98.8 F) 08/15/2024 10:19 AM CDT Respiratory Rate 20 08/15/2024 10:1 9 AM CDT Oxygen Saturation 98% 08/15/2024 10: 19 AM CDT Inhaled Oxygen Concentration - - Weight 81.5 kg (179 lb 11.2 oz) 025 10:19 AM CDT Height 193 cm (6' 3.98) 08/15/2024 10: 19 AM CDT Body Mass Index 21.88 08/15/2024 10:19 AM CDT Plan of Treatment Health Maintenance Due Date Last Done Comments Depression Screening 2003 Hepatitis C Screening 2003 Meningococcal B Vaccine (1 o f 2 - Standard) 2019 Regular Well Visit/Exam 18-64 09/17/2021 Covid-19 Vaccine (4 - 2023-2 5 season) 2023 02/12/2021, 07/07/2020, 06/16/2020 Influenza Vaccine (#1) 2024 7, 12/28/2014, 01/12/2014, Additional history exists DTaP/Tdap/Td Vaccine (7 - Td or Tdap) 10/19/2024 10/19/2014, 09/15/2008, 12/20/2004, Additional history exists Hepatitis B Screening Completed 06/22/2004 , 2003, 2003 Pneumococcal vaccine <65 Completed 005, 03/16/2004, 01/17/2004, Additional history exists Varicella Vaccines Completed 09/15/2008, 12/20/2004 HPV Vaccines Completed 05/03/2015, 12/10, 10/19/2014 Meningococcal Vaccine Completed 08/21/2020, 015 Insurance [facility] CHO[facility] PLUS [facility]PPO Address: [facility] [address] [place] [address] Care Teams Customs Compliance Manager Relationship Specialty Start Date End Date Arti Roy MD [facility] [place] [address] PCP - General Family Medicine 11/16/19
--- OUTSIDE RECORDS SUMMARY | 2024-09-01 06:38 | XMS_ITS ---
Author Organization [facility] [place] ([address]) Address [address] [place] [address] Care Team Providers Care Neonatal Pediatric Nurse Name Role Phone Tammy Ott Primary Care Provider UnavailAaron Bustillo Unavailable [phone] [employer], Provider Unavailable Unavailab le REASON [facility] VISIT [facility] Encounter Medications Medication SIG (Take, Route, Frequency, Duration) Notes Start Date End Date Status Vanicream - 1 matt applied topically BID; Duration: 14 day(s) Active Patanase 665 MCG/INH 1 SPRAY IN EACH NOSTRIL BID; Duration: 30 DAY(S) *Please review and pick correct strength-formulatio n from Medispan options. If intended option is not shown, discontinue and re-order from Quick Search* Active NASAL WASHES N/A DIRECTED INTRANASALLY NEEDED; [...] tab(s) chewed QPM; Duration: 30 day(s) Active NASONEX 50 MCG/INH 1 SPRAY EACH NOSTRIL ONCE A DAY; Duration: 30 *Please review for potential replacement for e-prescription and drug interaction check* Active Encounters Encounter Location Date Provider Diagnosis [facility] [address] [place] [address] 07/25/2023 Provider Oscar Cough 786.2 ; Hypertrophy of nasal turbinates 478.0 and Eczema 692.9 Assessments Encounter Date Diagnosis (ICD Code) Assessment Notes Treatment Notes Treatment Clinical Notes Section Notes 07/25/2023 Cough (ICD9-CM - 786.2) 07/25/2023 Hypertrophy of nasal turbinates (ICD9-CM - 478.0) 07/25/2023 Eczema (ICD9-CM - 692.9) Plan Of Treatment Medication Medication Name Sig Start Date Stop Date Notes Vanicream - 1 matt applied topically BID; Duration: 14 day(s) Patanase 665 MCG/INH 1 SPRAY IN EACH NOSTRIL BID; Duration: 30 DAY(S) *Please review and pick correct strength-formulation from [employer] options. If intended option is not shown, discontinue and re-order from Quick Search* NASAL WASHES N/A DIRECTED INTRANASALLY NEEDED; Duration: 30 *Please review for potential replacement for e-prescription and drug interaction check* PROVENTIL (ALBUTEROL) HFA 90 MCG/INH, CFC-FREE 2-4 PUFFS INHALED WITH SPACER QID, PRN AND PER ASTHMA ACTION PLAN; Duration: 30 DAYS *Please review for potential replacement for e-prescription and drug interaction check* Singulair 5 MG 1 tab(s) chewed QPM; Duration: 30 day(s) NASONEX 50 MCG/INH 1 SPRAY EACH NOSTRIL ONCE A DAY; Duration: 30 *Please review for potential replacement for e-prescription and drug interaction check* Progress Notes * Harpal BLANCADOB:2005 (18 yo M)Acc No.[id number]:07/25/2023 Patient: Harpal ESCALANTE Provider: Angela Irizarry :2005 A ge:17 Y S ex:Male Date:07/25/2023 Address:[address] , [place], [place] Pcp:Tammy Ott Subjective: * Chief Complaints: * 1 . [facility]. * Medical History: Objective: * Vitals: Assessment: * Assessment: 1. C ough - 786.2 (Primary) 2 . H ypertrophy of nasal turbinates - 478.0? 3. E czema - 692.9 Plan: * Treatment: 2. H ypertrophy of nasal turbinates Continue NASAL WASHES 1 QUART OF TAP WATER, 1 TSP NACL, 1 PINCH OF BAKING SODA, N/A, DIRECTED, INTRANASALLY, NEEDED, 30, QS, Refills PRN, Notes to Pharmacist: *Please review for potential replacement for e-prescription and drug interaction check*; C ontinue NASONEX NASAL INHALER, 50 MCG/INH, 1 SPRAY, EACH NOSTRIL, ONCE A DAY, 30, 1, Refills 3, Notes to Pharmacist: *Please review for potential replacement for e-prescription and drug interaction check*; C ontinue Patanase SPRAY, 665 MCG/INH, 1 SPRAY, IN EACH NOSTRIL, BID, 30 DAY(S), 1, Refills 3, Notes to Pharmacist: *Please review and [facility]. If intended option is not shown, discontinue and re-order from Quick Search*. 3. E czema Continue Vanicream Cream, - , 1 matt, applied topically, BID, 14 day(s). * Billing Information: * Visit Code: * Procedure Codes: * Electronic signature of Dominick FORD-Migration on 09/01/2024 at 06:38 AM CDT Sign off status: Pending * Provider: Angela betancur Migration Date: 07/25/2023 Generated for Edilma son/Maddi/Tonismitting on: 09/01/2024 06:38 AM CDT
--- OUTSIDE RECORDS SUMMARY | 2024-09-01 06:38 | XMS_ITS | Clinical Summary ---
Author Organization [email or web address] Address [address] [place] [address] Care Team Providers Care Resource Room Teacher Name Role Phone Unavailable Primary Care Provider Unavailabl e Medications ketorolac tromethamine (TORADOL) 10 mg tablet Take 1 tablet by mouth every 8 hours as needed for pain. Max duration of 5 days. 14 Tablet 07/15/2023 4:21 PM CDT Active ondansetron (ZOFRAN ODT) 4 mg Tablet, Rapid Dissolve Dissolve 1 tablet on the tongue and swallow every 8 hours As Needed for nausea and vomiting 10 Tablet 03/10/2024 11:26 AM SENIOR DRAFTER 5 Active Encounters Date Type Department Care Team Description 08/09/2024 External Device Data [facility] Provider, Abstract 07/26/2024 External Device Data [facility] Provider, Abstract 06/30/2024 External Device Data [facility] Provider, Abstract 06/30/2024 External Device Data [facility] Provider, Abstract 06/29/2024 External Device Data [facility] Provider, Abstract 06/29/2024 External Device Data [facility] Provider, Abstract 06/28/2024 External Device Data [facility] Provider, Abstract from Last 3 Months Social History Tobacco Use Types Packs/Day Years Used Date Smoking Tobacco: Never Assessed Sex and Gender Information Value Date Recorded Sex Assigned at Not on file Legal Sex Male 11:07 AM CDT Gender Identity Not on file Sexual Orientation Not on file Plan of Treatment Health Maintenance Due Date Last Done Comments CHLAMYDIA SCREENING (ANNUAL) 11-24 YEARS 09/17/2014 HPV VACCINES (1 - Male 3-dose series) 09/17/2018 DTAP/TDAP/TD VACCINES (1 - Tdap) 09/17/2022 HEPATITIS B VACCINES (1 of 3 - 19+ 3-dose series) 10/2022 INFLUENZA VACCINE (#1) 2024 Insurance [employer] ([employer]) [facility] [employer] [facility]
--- OUTSIDE RECORDS SUMMARY | 2024-09-01 06:38 | XMS_ITS | Referral Summary ---
Author Organization [facility] Address [address] [place] [address] Care Team Providers Care Rehabilitation Coordinator Name Role Phone Arti Roy MD Primary Care Provider +1- [phone] Encounters Date Type Department Care Team Description 08/15/2024 10:15 AM CDT Office Visit [facility] at [address] [phone] Tori Meyer PA Physical exam, pre-employment (Primary Dx) from Last 3 Months Allergies No known active allergies Medications triamcinolone [...] Noted Date Diagnosed Date Pharyngeal dysphagia 05/31/2021 Social History Tobacco Use Types Packs/Day Years Used Date Smoking Tobacco: Never Tobacco Cessation:Counseling Given: Not Answered Sex and Gender Information Value Date Recorded Sex Assigned at Not on file 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
--- OUTSIDE RECORDS SUMMARY | 2024-09-01 06:39 | XMS_ITS | Data Portability ---
Author Organization [employer], Main Office Address [address] [place] [address] Assessment No assessment recorded. Plan of Treatment Reminders Order Date Submit Date Provider Last Modified By Organization Details Last Modified Time Details Appointments None recorded. Lab None recorded. Referral None recorded. Procedures None recorded. Surgeries None recorded. Imaging None recorded. Medication Orders Zithromax Z-Michael 250 mg tablet 2022 023 [facility] [address] [place], [address], 3 12:13:39 Zyrtec-D 5 mg-120 mg tablet,ext ended release 2022 023 [facility] [address] [place], [address], 3 12:13:44 Patient TargetsNo targets recorded. Patient InstructionsNo instructions recorded. Reason for Referral None Reported. Problems Name Problem SNOMED Code Status Onset Date Resolution Date Notes Provider Name and Address Organization Details Recorded Time Headache 99862098 Active 017 Not Available [facility] 3 18:02:23 Acute sinusitis 90010414 Active 023 Arti Roy MD [address] [place] [address], [id number] , [employer] 3 12:10:11 Problem Notes None recorded. Medical Equipment None Reported. Allergies Allergen ID Allergen Name Allergen Category Reaction Reaction Severity Criticality Documentation Date Start Date Code Code System Note Provider Name and Address Organization Details Recorded Time 77253 perfume environme nt Not available Not available Not available 04/09/2022 78792 UNK Not Available [facility] 3 18:03:54 53609 latex environme nt,medica tion Not available Not available Not available 04/09/2022 15691 91 RxNorm Not Available [facility] 3 18:03:54 71017 adhesive environme nt,medica tion Not available Not available Not available 04/09/2022 63617 UNK Not Available [facility] 3 18:03:54 Medications Name Sig Start Date [...] Not Available No t Available Afluria Quad 0120-4349 (PF) 60 mcg (15 mcg x 4)/0.5 mL IM syringe 03/06 completed Not Available Not Available Not Available Vitals Date Recorded Body mass index (BMI) Body height Oxygen saturation Oxygen saturation in Arterial blood by Pulse oximetry Heart rate Body temperature Body weight Systolic And Diastolic Provider Name and Address Organization Details Last Updated DateTime 2 19.9 kg/m2 190.5 cm 96 % 96 % 92 /min 98.8 [degF] 87374.1 9 g 112/74 mm[Hg] Not Available [facility] 3 18:02:07 Date Recorded Body height Body mass index (BMI) [Percentile] Per age and sex Body mass index (BMI) Body weight Body temperature Heart rate Oxygen saturation Oxygen saturation in Arterial blood by Pulse oximetry Systolic And Diastolic Provider Name and Address Organization Details Last Updated DateTime 3 190.5 cm 23 % 20.5 kg/m2 55169.1 5 g 97.8 [degF] 82 /min 98 % 98 % 102/70 mm[Hg] ELEUTERIO Villa [facility] [employer] [facility] 3 12:00:58 Social History None recorded. Functional Status None recorded. Mental Status None recorded. Family History Nothing Reported. Medical History No medical history recorded. Immunizations Vaccine Type Date Status Note Provider Nam e and Address Organization Details Recorded Time meningococcal MCV4P 1 completed Not Available [facility] 04/09/2022 18:03:52 Past Encounters Encounter ID Performer Location Encounter Start Date Encounter Closed Date Diagnosis/Indication Diagnosis SNOMED-CT Code Diagnosis ICD10 Code Diagnosis Note [id number] [facility] [address] [place] [address] 08/21/2020 00:00:00 08/21/2020 20:58:53 [id number] [facility] [address] [place] [id number] 03/06/2021 00:00:00 03/07/2021 06:15:32 [id number] Arti Roy MD [facility] [place] [facility] [address] [facility] [address] [place] [address] 07/25/2022 11:47:56 07/25/2022 12:17:56 Acute sinusitis 21080160 J01.90 SxRx hot packs to face saline nasal spray Health Concerns Section Related Observation LastModified by Organization Detai ls LastModified Time None Recorded Concern Status LastModified by Organization Details LastModified Time None Recorded Advance Directives Directive None Recorded Payers Insurance Date Sequence Insurance Name Policy Number Policy Obando Covered Member ID Obando Member ID Guarantor Name 07/22/2022 1 [facility] [id number] Romario Nicholson [id number] Carole Nicholson Notes Date Note Type Note [...] strep throat. No fatigue. Arti Roy MD [address] [place] [address] [facility], [place], [address], [place] [employer] 07/25/2022 16:29:31
== END 2024-09-01 06:35 | disposition home or self-care (01) ==
PROVIDERS: PCP Internal Medicine; Visit Provider Clinical Nurse Specialist
DX: G43.909 Migraine, unspecified, not intractable, without status migrainosus (principal); J32.8 Other chronic sinusitis
CPT/HCPCS: 70553; A9577